=== PATIENT | female | born 1990 | race Asian ===

== ENCOUNTER 2024-04-04 12:10 | Emergency (ER) | payer BC, SELFPAY ==
[2024-04-04] MEDS ORDERED: NA CHLORIDE 0.9% 1,000 ML ONE (12:36)
[2024-04-04 12:41] LABS: Absolute Basophils 0.1 K/uL (0-0.5); Absolute Eosinophils 0.2 K/uL (0-0.5); Absolute Lymphocytes (CBC) 3.5 K/uL (0.7-4.9); Absolute Monocytes 0.3 K/uL (0.1-1.3); Absolute Neutrophil 4.3 K/uL (1.8-8.0); Basophils % 0.7 % (0-1.3); Eosinophils % 2.2 % (0-4.4); Hematocrit 38.1 % (36.0-45.0); Hemoglobin 12.3 g/dL (12.0-15.0); Lymphocytes % 41.4 % (15.3-44.8); MCH 26.8 pg (27.0-35.0); MCHC 32.3 g/dL (32.0-36.0); MPV 8.3 fL (7.6-11.3); Neutrophils % 51.7 % (41.7-73.7); Platelets 299 thou/uL (152-406); RBC Red Blood Cell Count 4.59 M/uL (3.86-4.86); Red Cell Distribution Width 15.4 % (12.1-15.2)
[2024-04-04 12:51] LABS: PT Prothrombin Time 12.2 SECONDS (9.4-12.5); PTT, Activated Partial Thromb 30.9 SECONDS (24.3-36.9); Protime INR 1.09
[2024-04-04 13:00] LABS: ALT/SGPT 17 U/L (13-56); AST/SGOT 15 U/L (15-37); Albumin 3.3 g/dL (3.4-5.0); Albumin/Globulin Ratio 0.8 (1.1-1.8); Alkaline Phosphatase 59 U/L (45-117); Anion Gap 8.5 mEq/L (5.0-15.0); BUN Blood Urea Nitrogen 10 mg/dL (7-18); Bicarbonate 27 mEq/L (21-32); Bilirubin Total 0.3 mg/dL (0.2-1.0); Globulin 4.1 g/dL (2.3-3.5); Glomerular Filtration Rate 109 ml/min (=/>90); Glucose Level 124 mg/dL (74-106); Potassium 3.5 mEq/L (3.5-5.1); Protein, Total 7.4 g/dL (6.4-8.2); Sodium Level 139 mEq/L (136-145)
[2024-04-04 13:01] LABS: Bilirubin Direct < 0.2 mg/dL (0-0.2); Bilirubin Indirect, Calculated 0.1 mg/dL (0.2-0.8); Troponin High Sensitivity < 3.0 pg/mL (<58.9)
--- NOTE | 2024-04-04 13:07 | RAD REPORT ---
Procedure: Chest Single View HISTORY: Syncope COMPARISON: none FINDINGS: The lungs appear clear of acute infiltrate. No significant pleural effusion noted. The heart is normal size. IMPRESSION: No acute abnormality is displayed.
--- NOTE | 2024-04-04 13:14 | RAD REPORT ---
EXAM: CT brain without contrast HISTORY: Syncope COMPARISON: None TECHNIQUE: Multiple contiguous axial images were obtained and a CT of the brain without contrast.. Sagittal and coronal reconstruction performed. Automated exposure control, adjustment of the mA and/or kV according to patient size, and/or iterative reconstruction. Unless otherwise specified, incidental f indings do not require dedicated imaging follow-up FINDINGS: An intracranial bleed is not seen Ventricles are normal caliber No extra-axial fluid collection noted No significant hypodensity within the brain No fluid within the visualized sinuses or mastoids noted. Opacification left aspect of the sphenoid s inus compatible with chronic sinusitis IMPRESSION: No acute intracranial abnormality noted. If the patient continues to have symptoms to suggest an acute intracranial abnormality then MRI of th e brain would be recommended.
--- NOTE | 2024-04-04 13:40 | EDPHYS ---
Physician Documentation [facility] Name: Yuni Leos Age: 33 yrs Sex: Female : 1990 Arrival Date: 04/04/2024 Time: 12:10 Bed 20 Private MD: ED Physician Lissa Polanco HPI: 04/04 12:51 This 33 yrs old Female presents to ER via Stretcher with complaints of Syncope. sp3 12:51 33-year-old female with no past medical history presents with full syncopal episode sp3 after giving blood earlier today. 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 Patient was incontinent and was unresponsive for approximately 1 minute before slowly coming to. Patient now complains of just dizziness and generalized weakness without any pain. She reports no prodrome to the event including known seizure, chest pain, shortness of breath, headache or any other symptoms. No prior history of syncope or seizures. Last menstrual cycle 1 week ago.. Historical: - Allergies: 12:43 No Known Allergies; bp - Immunization history:: Adult Immunizations up to date. - Infectious Disease History:: Denies. - Social history:: Smoking status: Patient denies any tobacco usage or history of. ROS: 12:52 Constitutional: Negative for fever, chills, and weight loss, Eyes: Negative for injury, sp3 pain, redness, and discharge, Neck: Negative for injury, pain, and swelling, Cardiovascular: Negative for chest pain, palpitations, and edema, Respiratory: Negative for shortness of breath, cough, wheezing, and pleuritic chest pain, Abdomen/GI: Negative for abdominal pain, nausea, vomiting, diarrhea, and constipation, Back: Negative for injury and pain, MS/Extremity: Negative for injury and deformity, Skin: Negative for injury, rash, and discoloration, Psych: Negative for depression, anxiety, suicide ideation, homicidal ideation, and hallucinations, Allergy/Immunology: Negative for hives, rash, and allergies, Endocrine: Negative for neck swelling, polydipsia, polyuria, polyphagia, and marked weight changes, 12:52 All other systems are negative, Exam: 12:53 Constitutional: This is a well developed, well nourished patient who is awake, alert, sp3 and in no acute distress. Head/Face: Normocephalic, atraumatic. Eyes: Pupils equal round and reactive to light, extra-ocular motions intact. Lids and lashes normal. Conjunctiva and sclera are non-icteric and not injected. Cornea within normal limits. Periorbital areas with no swelling, redness, or edema. ENT: Nares patent. No nasal discharge, no septal abnormalities noted. External auditory canals are clear. Oropharynx with no redness, swelling, or masses, exudates, or evidence of obstruction, uvula midline. Mucous membranes moist. Neck: Trachea midline, no thyromegaly or masses palpated, and no cervical lymphadenopathy. Supple, full range of motion without nuchal rigidity, or vertebral point tenderness. No Meningismus. Chest/axilla: Normal chest wall appearance and motion. Nontender with no deformity. No lesions are appreciated. Cardiovascular: Regular rate and rhythm with a normal S1 and S2. No gallops, murmurs, or rubs. Normal PMI, no JVD. No pulse deficits. Respiratory: Lungs have equal breath sounds bilaterally, clear to auscultation and percussion. No rales, rhonchi or wheezes noted. No increased work of breathing, no retractions or nasal flaring. Abdomen/GI: Soft, non-tender, with normal bowel sounds. No distension or tympany. No guarding or rebound. No evidence of tenderness throughout. Back: No spinal tenderness. No costovertebral tenderness. Full range of motion. Skin: Warm, dry with normal turgor. Normal color with no rashes, no lesions, and no evidence of cellulitis. MS/ Extremity: Pulses equal, no cyanosis. Neurovascular intact. Full, normal range of motion. Neuro: Awake and alert, GCS 15, oriented to person, place, time, and situation. Cranial nerves II-XII grossly intact. Motor strength 5/5 in all extremities. Sensory grossly intact. Cerebellar exam normal. Normal gait. Psych: Awake, alert, with orientation to person, place and time. Behavior, mood, and affect are within normal limits. 12:53 Neuro: Neurological exam baseline at the moment and normal. Patient had 2 witnessed episodes of possible repeat event with eyes rolling back and moment of decreased responsiveness before spontaneously resolving., 12:59 ECG was reviewed by the Attending Physician. EKG demonstrates normal sinus rhythm at 84 sp3 bpm with normal intervals, normal QRS, normal axis, normal ST's ST segments without evidence of acute ischemia. Vital Signs: 12:30 BP 88 / 74; Pulse 79; Resp 15; Pulse Ox 100% ; bp 13:44 BP 111 / 84 Sitting; Pulse 80; Pulse Ox 93% on R/A; nh2 13:44 BP 103 / 74 Standing; Pulse 92; Pulse Ox 100% on R/A; nh2 13:56 BP 110 / 83 Supine; Pulse 83; Pulse Ox 100% on R/A; nh2 MDM: 12:14 Medical Screening Exam initiated sp3 12:54 Data reviewed: vital signs, nurses notes, lab test result(s), EKG, radiologic studies. sp3 ED course: 33-year-old female with syncopal episode and recurrent 2 episodes of potential repeat. Differential diagnosis includes vagal syncope, cardiovascular event, arrhythmia, intracranial pathology, seizure, among others. Workup will include CT scan of the head, EKG, chest x-ray and general labs, orthostatics and urinalysis and hCG. Disposition pending workup and patient course.. 13:38 ED course: Full workup negative. Blood pressure is improved. Patient declines having sp3 remainder of IV fluids. She states she wants to go back to work. At this time we will safely discharge her.. 12 12:15 Order name: Basic Metabolic Panel; Complete Time: 13:30 sp3 04/04 12:15 Order name: CBC with Diff; Complete Time: 12:59 sp3 04/04 12:15 Order name: Hepatic Function; Complete Time: 13:30 sp3 04/04 12:15 Order name: Magnesium; Complete Time: 13:30 sp3 04/04 12:15 Order name: Protime (+inr); Complete Time: 12:59 sp3 12 12:15 Order name: Ptt, Activated; Complete Time: 12:59 sp3 04/04 12:15 Order name: Troponin High Sensitivity; Complete Time: 13:30 sp3 12 12:15 Order name: CT Head Brain wo Cont; Complete Time: 13:30 sp3 12 12:15 Order name: Chest Single View XRAY; Complete Time: 13:30 sp3 04/04 12:15 Order name: EKG; Complete Time: 12:15 sp3 04/04 12:15 Order name: Cardiac monitoring; Complete Time: 12:28 sp3 04/04 12:15 Order name: EKG - Nurse/Tech; Complete Time: 12:28 sp3 04/04 12:15 Order name: IV Saline Lock; Complete Time: 12:42 sp3 04/04 12:15 Order name: Labs collected and sent; Complete Time: 12:42 sp3 04/04 12:15 Order name: NPO; Complete Time: 12:27 sp3 04/04 12:15 Order name: O2 Per Protocol; Complete Time: 12:27 sp3 04/04 12:15 Order name: O2 Sat Monitoring; Complete Time: 12:27 sp3 04/04 12:15 Order name: Orthostatics; Complete Time: 14:02 sp3 Administered Medications: 12:42 Drug: NS 0.9% IV 1000 ml IV at 1 bolus Per protocol; to be given as a bolus over 60 bp minutes Route: IV; Rate: 1 bolus; Site: left antecubital; 14:30 Follow up: IV Status: Completed infusion bp Disposition Summary: 04/04/24 13:39 Discharge Ordered Notes: Location: Home sp3 Condition: Stable sp3 Diagnosis - Syncope, vasovagal event sp3 Followup: sp3 - With: Private Physician - When: Upon discharge from the Emergency Department - Reason: Continuance of care Discharge Instructions: - Discharge Summary Sheet sp3 - Syncope sp3 Forms: - Medication Reconciliation Form sp3 - Antibiotic Education sp3 - Prescription Opioid Use sp3 - Patient Portal Instructions sp3 - Leadership Thank You Letter sp3 Signatures: Dispatcher [employer] Yevgeniy Rodgers, JONA RN Lissa Bonilla MD MD sp3 Corrections: (The following items were deleted from the chart) 12:16 12:15 BASIC METABOLIC PANEL+C.LAB.BRZ ordered. EDMS EDMS 12:16 12:15 CBC+H.LAB.BRZ ordered. EDMS EDMS 12:16 12:15 HEPATIC FUNCTION+C.LAB.BRZ ordered. EDMS EDMS 12:16 12:15 MAGNESIUM+C.LAB.BRZ ordered. EDMS EDMS 12:16 12:15 PROTIME (+INR)+COAG.LAB.BRZ ordered. EDMS EDMS 12:16 12:15 PTT, ACTIVATED+COAG.LAB.BRZ ordered. EDMS EDMS 12:15 Troponin High Sensitivity+C.LAB.BRZ ordered. EDMS EDMS 12:15 Urinalysis+U.LAB.BRZ ordered. EDMS EDMS
--- NOTE | 2024-04-04 13:40 | ER ---
Nurse's Notes [facility] Name: Yuni Leos Age: 33 yrs Sex: Female : 1990 Arrival Date: 04/04/2024 Time: 12:10 Bed 20 Private MD: Diagnosis: Syncope, vasovagal event Presentation: 04/04 12:25 Chief complaint: Syncopal episode after donating blood this morning. Coronavirus ss screen: Client denies travel out of the [place] in the last 14 days. Ebola Screen: Patient denies exposure to infectious person. Patient denies travel to an Ebola-affected area in the 21 days before illness onset. Initial Sepsis Screen: Does the patient meet any 2 criteria? No. Patient's initial sepsis screen is negative. Does the patient have a suspected source of infection? No. Patient's initial sepsis screen is negative. Risk Assessment: Do you want to hurt yourself or someone else? Patient reports no desire to harm self or others. Onset of symptoms was April 04, 2024. 12:25 Method Of Arrival: Stretcher ss 12:25 Acuity: JEAN 3 ss Triage Assessment: 12:30 General: Appears distressed, Behavior is cooperative, appropriate for age, drowsy. bp Pain: Denies pain. EENT: No deficits noted. Neuro: Reports a syncopal episode. Cardiovascular: Rhythm is sinus rhythm. Respiratory: No deficits noted. GI: No signs and/or symptoms were reported involving the gastrointestinal system. : No signs and/or symptoms were reported regarding the genitourinary system. Derm: No deficits noted. Musculoskeletal: No deficits noted. Historical: - Allergies: 12:43 No Known Allergies; bp - Immunization history:: Adult Immunizations up to date. - Infectious Disease History:: Denies. - Social history:: Smoking status: Patient denies any tobacco usage or history of. Screenin:30 [facility] ED Fall Risk Assessment (Adult) History of falling in the last 3 months, bp including since admission No falls in past 3 months (0 pts) Confusion or Disorientation No (0 pts) Intoxicated or Sedated No (0 pts) Impaired Gait No (0 pts) Mobility Assist Device Used No (0 pt) Altered Elimination No (0 pt) Score/Fall Risk Level 0 - 2 = Low Risk Oriented to surroundings. Abuse screen: Denies threats or abuse. Denies injuries from another. Nutritional screening: No deficits noted. Tuberculosis screening: No symptoms or risk factors identified. Assessment: 12:30 General: Appears distressed, Behavior is cooperative, appropriate for age, drowsy. bp Pain: Denies pain. Neuro: Level of Consciousness is awake, obeys commands, lethargic, Oriented to person, place, time, situation, Appropriate for age. Cardiovascular: Rhythm is sinus rhythm. Respiratory: No deficits noted. GI: No signs and/or symptoms were reported involving the gastrointestinal system. : No signs and/or symptoms were reported regarding the genitourinary system. EENT: No deficits noted. Musculoskeletal: No deficits noted. Vital Signs: 12:30 BP 88 / 74; Pulse 79; Resp 15; Pulse Ox 100% ; bp 13:44 BP 111 / 84 Sitting; Pulse 80; Pulse Ox 93% on R/A; nh2 13:44 BP 103 / 74 Standing; Pulse 92; Pulse Ox 100% on R/A; nh2 13:56 BP 110 / 83 Supine; Pulse 83; Pulse Ox 100% on R/A; nh2 ED Course: 12:14 Patient arrived in ED. ss 12:14 Lissa Polanco MD is Attending Physician. sp3 12:25 Yevgeniy Pitt, RN is Primary Nurse. bp 12:25 Arm band placed on right wrist. ss 12:27 Triage completed. ss 12:30 Patient has correct armband on for positive identification. Bed in low position. bp 12:34 Initial lab(s) drawn, by me, sent to lab. EKG done, by ED staff, reviewed by Lissa Polanco MD. Inserted saline lock: 22 gauge in left antecubital area, using aseptic technique. Blood collected. Flushed with 10 mL NS. 12:49 Chest Single View XRAY In Process Unspecified. EDMS 12:55 CT Head Brain wo Cont In Process Unspecified. EDMS 14:29 No provider procedures requiring assistance completed. IV discontinued, intact, bp bleeding controlled, No redness/swelling at site. Pressure dressing applied. Administered Medications: 12:42 Drug: NS 0.9% IV 1000 ml IV at 1 bolus Per protocol; to be given as a bolus over 60 bp minutes Route: IV; Rate: 1 bolus; Site: left antecubital; 14:30 Follow up: IV Status: Completed infusion bp Outcome: 13:39 Discharge ordered by MD. lauren 14:29 Discharged to home via wheelchair, with family, bp 14:29 Condition: stable 14:29 Discharge instructions given to patient, Instructed on discharge instructions, follow up and referral plans. Demonstrated understanding of instructions, follow-up care, 14:30 Patient left the ED. bp Signatures: Dispatcher [employer] EDMelinda Mobley RN RN ss Yevgeniy Pitt RN RN bp Lissa Polanco MD MD sp3 Billy Blank, Homero nh2
[2024-04-04 15:36] VITALS: O2SAT 100
[2024-04-04 15:53] VITALS: BP 110/83
== END 2024-04-04 14:30 | disposition home or self-care (01) ==
LOC: ER 12:10
DX: R55 Syncope and collapse (principal)
CPT/HCPCS: 96361; 85025; 80048; 36415; 83735; 85610; 80076; 85730; 84484; 70450; 71045; 96360; 99284; J7030